=== PATIENT | male | born 1935 | race Two or more races ===

== ENCOUNTER 2025-06-19 15:55 | Emergency (ER) | payer OTHER ==
[~2025-06-19] VITALS: Ht 170.2 cm; Wt 63.5 kg
[2025-06-19 16:26] VITALS: BP 149/81; O2SAT 97
[2025-06-19] MEDS ORDERED: FAMOTIDINE/PF 20 MG/2 ML VIAL IV PUSH STA (16:59)
[2025-06-19] MEDS ORDERED: FAMOTIDINE/PF 20 MG/2 ML VIAL ONE (17:06)
[2025-06-19 17:25] LABS: BASO % 0.5 % (0.1-1.2); EOS # 0.04 (0.04-0.54); EOS % 0.5 % (0.7-7.0); LYMPH # 2.46 (1.18-3.74); LYMPH % 28.0 % (19.3-53.1); MEAN PLATELET VOLUME 9.90 fl (9.4-12.4); MONO # 0.69 (0.24-0.82); MONO % 7.8 % (4.7-12.5); NEUT # 5.54 (1.56-6.13); NEUT % 63.0 % (34.0-71.1); RED CELL DISTRIBUTION WIDTH 12.7 % (11.6-14.4)
[2025-06-19 18:09] LABS: BILIRUBIN TOTAL 0.74 mg/dL (0.3-1.2); BUN CREA RATIO 20.0 (7.0-25.0); CREATININE SERUM 0.81 mg/dL (0.70-1.30); GFR 89.72; GLOBULINA 2.9 G/DL (2.4-3.5); GLUCOSE FASTING 93.0 mg/dL (65-100); OSMOLALITY SERUM 282.0 MOSM/KG (275-295)
[2025-06-19 18:10] LABS: ALT/SGPT 23.0 U/L (12-78); AST/SGOT 12.0 U/L (15-37)
== END 2025-06-19 19:18 | disposition home or self-care (01) ==
LOC: ER 15:55
PROVIDERS: General Practice
DX: K29.70 Gastritis, unspecified, without bleeding (principal)

== ENCOUNTER 2025-07-11 06:00 | Day surgery (SDC) | payer OTHER ==
[2025-07-09 09:29] LABS: BASO % 0.7 % (0.1-1.2); EOS # 0.20 (0.04-0.54); EOS % 2.3 % (0.7-7.0); LYMPH # 2.50 (1.18-3.74); LYMPH % 28.4 % (19.3-53.1); MEAN PLATELET VOLUME 9.80 fl (9.4-12.4); MONO # 0.66 (0.24-0.82); MONO % 7.5 % (4.7-12.5); NEUT # 5.35 (1.56-6.13); NEUT % 60.9 % (34.0-71.1); RED CELL DISTRIBUTION WIDTH 12.5 % (11.6-14.4)
[2025-07-09 09:51] LABS: INR 1.08
[2025-07-09 09:59] VITALS: BP 170/70
[2025-07-09 10:03] LABS: ALT/SGPT 25.0 U/L (12-78); AST/SGOT 10.0 U/L (15-37); BILIRUBIN TOTAL 0.53 mg/dL (0.3-1.2); BUN CREA RATIO 18.0 (7.0-25.0); CREATININE SERUM 0.94 mg/dL (0.70-1.30); GFR 75.56; GLOBULINA 2.7 G/DL (2.4-3.5); GLUCOSE FASTING 87.0 mg/dL (65-100); OSMOLALITY SERUM 280.0 MOSM/KG (275-295)
[~2025-07-11] VITALS: Ht 170.2 cm; Wt 64.4 kg
[~2025-07-11 06:00] MED LIST: ARICEPT10 MG PO; BETHANECHOL CHL25 MG PO; LEVOTHYROXINE25 MCG PO; TAMS0.4C PO; ZOLOFT25 MG PO
== END 2025-07-11 14:40 | disposition home or self-care (01) ==
LOC: CIR.AMB 06:00
PROVIDERS: ATTEND Internal Medicine
DX: K80.20 Calculus of gallbladder without cholecystitis without obstruction (principal); K80.10 Calculus of gallbladder with chronic cholecystitis without obstruction; R93.2 Abnormal findings on diagnostic imaging of liver and biliary tract; R10.11 Right upper quadrant pain

== ENCOUNTER 2025-09-08 12:06 | Emergency (ER) | payer OTHER ==
[~2025-09-08] VITALS: Ht 170.2 cm; Wt 64.4 kg
[2025-09-08 12:42] VITALS: BP 151/68; O2SAT 98
[2025-09-08] MEDS ORDERED: FAMOTIDINE/PF 20 MG/2 ML VIAL IV ONE (13:15)
[2025-09-08] MEDS ORDERED: HYOSCYAMINE SULFATE 0.125 MG TAB.SUBL SL ONE (13:15)
[2025-09-08] MEDS ORDERED: ONDANSETRON HCL 2 MG/ML VIAL IV ONE (13:15)
[2025-09-08] MEDS ORDERED: 0.9 % SODIUM CHLORIDE 1,000 ML IV ONE (13:30)
[2025-09-08] MEDS ORDERED: HYOSCYAMINE SULFATE 0.125 MG TAB.SUBL ONE (14:30)
[2025-09-08] MEDS ORDERED: ONDANSETRON HCL 2 MG/ML VIAL ONE (14:30)
[2025-09-08] MEDS ORDERED: FAMOTIDINE/PF 20 MG/2 ML VIAL ONE (14:30)
[2025-09-08 14:35] LABS: BASO % 0.9 % (0.1-1.2); EOS # 0.14 (0.04-0.54); EOS % 1.8 % (0.7-7.0); LYMPH # 2.38 (1.18-3.74); LYMPH % 29.8 % (19.3-53.1); MEAN PLATELET VOLUME 9.80 fl (9.4-12.4); MONO # 0.62 (0.24-0.82); MONO % 7.8 % (4.7-12.5); NEUT # 4.69 (1.56-6.13); NEUT % 58.7 % (34.0-71.1); RED CELL DISTRIBUTION WIDTH 13.1 % (11.6-14.4)
[2025-09-08 15:01] LABS: INR 1.05
[2025-09-08 15:05] LABS: ALT/SGPT 25.0 U/L (12-78); AST/SGOT 14.0 U/L (15-37); BILIRUBIN TOTAL 0.78 mg/dL (0.3-1.2); BILIRUBIN,CONJUGATED 0.41 mg/dL (0.0-0.2); BUN CREA RATIO 19.0 (7.0-25.0); CREATININE SERUM 0.86 mg/dL (0.70-1.30); GFR 83.73; GLOBULINA 3.0 G/DL (2.4-3.5); GLUCOSE FASTING 86.0 mg/dL (65-100); OSMOLALITY SERUM 284.0 MOSM/KG (275-295)
[2025-09-08] MEDS ORDERED: TAMSULOSIN HCL 0.4 MG CAP PO STA (16:41)
[2025-09-08] MEDS ORDERED: TAMSULOSIN HCL 0.4 MG CAP PO ONE (17:04)
[2025-09-08 18:22] LABS: URINE APPEARANCE Clear; URINE BILIRRUBIN Negative (NEGATIVE); URINE BLOOD Large; URINE COLOR Yellow; URINE GLUCOSE Negative (NEGATIVE); URINE KETONE Trace (NEGATIVE); URINE LEUKOCYTE Trace; URINE NITRATE Negative; URINE PROTEIN Negative (NEGATIVE); URINE UROBILINOGEN 0.2 E.U./dl
[2025-09-08 18:25] LABS: URINE BACTERIA 86.9 uL (0.0-1933); URINE EPITHELIAL CELLS 7.6 uL (0.0-38.8); URINE RBC 533.7 uL (0.0-20.8); URINE WBC 43.0 uL (0.0-23.2)
[2025-09-08 18:45] LABS: TYPE CELLS RENAL TUBULAR; URINE CAST 0.42 uL (0.0-1.40)
[2025-09-08] MEDS ORDERED: CEFTRIAXONE SODIUM 1,000 MG VIAL IM STA (19:55)
[2025-09-08] MEDS ORDERED: CIPRO500 MG PO (20:17)
[2025-09-08] MEDS ORDERED: CEFTRIAXONE SODIUM 1,000 MG VIAL ONE (20:35)
== END 2025-09-08 20:54 | disposition home or self-care (01) ==
LOC: ER 12:06
PROVIDERS: General Practice
DX: N32.0 Bladder-neck obstruction (principal); R10.9 Unspecified abdominal pain; R11.2 Nausea with vomiting, unspecified; R11.10 Vomiting, unspecified; E03.8 Other specified hypothyroidism; I10 Essential (primary) hypertension
CPT/HCPCS: 36415; 51702; 74176; 96365; 96366; 96372; 99284; J0696; J2405; J3490; J7030